=== PATIENT | female | born 1955 | race American Indian/Alaskan Native ===

== ENCOUNTER 2019-06-12 11:44 | Emergency (ER) | payer MEDICARE ==
[2019-06-12 12:18] VITALS: BP 130/70
--- NOTE | 2019-06-12 12:19 | Emergency Department Report ---
Blank Doc - Documentation Documentation: This is a 64-year-old female that presents with bilateral leg swelling and sev eral areas of redness after being bitten by unknown insect. This initial assessment/diagnostic orders/clinical plan/treatment(s) is/are subject to change based on patient's health status, clinical progression and re- assessment by fellow clinical providers in the ED. Further treatment and workup at subsequent clinical providers discretion. Patient/guardians urged not to elope from the ED as their condition may be serious if not clinically assessed and managed. Initial orders include: 1- Patient sent to MAIN ED for further evaluation and treatment 2- labs 3- EKG 4- UA
[2019-06-12 12:59] LABS: Basophils % (Auto) 0.2 % (0.0-1.8); Eosinophils # (Auto) 0.4 K/mm3 (0.0-0.4); Eosinophils % (Auto) 3.6 % (0.0-4.3); Hematocrit 40.1 % (30.3-42.9); Hemoglobin 13.3 gm/dl (10.1-14.3); Lymphocytes # (Auto) 2.1 K/mm3 (1.2-5.4); Lymphocytes % (Auto) 20.1 % (13.4-35.0); Mean Corpuscular HGB Conc 33 % (30-34); Mean Corpuscular Volume 89 fl (79-97); Monocytes # (Auto) 0.7 K/mm3 (0.0-0.8); Monocytes % (Auto) 6.3 % (0.0-7.3); Platelet Count 275 K/mm3 (140-440); Red Blood Count 4.52 M/mm3 (3.65-5.03); Red Cell Distribution Width 14.6 % (13.2-15.2)
[2019-06-12 13:16] LABS: Bacteria,Urine 1+ /HPF (Negative); Bilirubin,Urine NEG (Negative); Blood,Urine SM (Negative); Color,Urine Yellow (Yellow); Mucus,Urine FEW /HPF; Protein,Urine <15 mg/dL mg/dL (Negative); Urobilinogen,Urine < 2.0 mg/dL (<2.0)
[2019-06-12 13:35] LABS: BUN/Creatinine Ratio 13; Blood Urea Nitrogen 12 mg/dL (7-17); Calcium 9.2 mg/dL (8.4-10.2); Hemolysis Index 3
--- NOTE | 2019-06-12 17:41 | Emergency Department Report ---
ED Extremity Problem HPI - General Chief complaint: Extremity Injury, Upper Stated complaint: FEET SWELLING/ARM PAIN Time Seen by Provider: 06/12/19 12:17 Source: patient Mode of arrival: Ambulatory Limitations: No Limitations - History of Present Illness Initial comments: Patient is a 64-year-old female who presents to the emergency room with complaints of bilateral lower extremity edema that began 2 days ago. She states she has noticed some redness to her left foot. She states that she was also bitten by an insect on her left upper arm. has had some redness to the left upper arm with itching and hives present. she has not taken anything for her symptoms. She states she has had swelling in her legs before but denies any history of DVT/PE. she denies any chest pain, shortness of breath, or any other symptoms. She denies any new soaps, detergents, foods, lotions. Denies any past medical history. she does not take any medications on a daily basis. She denies any allergies to medications. - Related Data Previous Rx's Medication Instructions Recorded Last Taken Type Clindamycin [Clindamycin CAP] 450 mg PO TID 7 Days #63 capsule 06/12/19 Unknown Rx Hydrocortisone [Hydrocortisone 1 applic TP BID #1 oint...g. 06/12/19 Unknown Rx 2.5% OINT] diphenhydrAMINE [Benadryl CAP] 25 mg PO Q6HR PRN #20 capsule 06/12/19 Unknown Rx Allergies Allergy/AdvReac Type Severity Reaction Status Date / Time No Known Allergies Allergy Unverified 06/12/19 11:50 ED Review of Systems ROS: Stated complaint: FEET SWELLING/ARM PAIN Other details as noted in HPI Comment: All other systems reviewed and negative ED Past Medical Hx - Past Medical History Previous Medical History?: No - Surgical History Past Surgical History?: No - Social History Smoking Status: Never Smoker Substance Use Type: Alcohol - Medications Home Medications: Home Medications Medication Instructions Recorded Confirmed Last Taken Type Clindamycin [Clindamycin CAP] 450 mg PO TID 7 Days #63 capsule 06/12/19 Unknown Rx Hydrocortisone [Hydrocortisone 1 applic TP BID #1 oint...g. 06/12/19 Unknown Rx 2.5% OINT] diphenhydrAMINE [Benadryl CAP] 25 mg PO Q6HR PRN #20 capsule 06/12/19 Unknown Rx ED Physical Exam - General Limitations: No Limitations General appearance: alert, in no apparent distress - Head Head exam: Present: atraumatic, normocephalic - Eye Eye exam: Present: normal appearance - ENT ENT exam: Present: mucous membranes moist - Respiratory Respiratory exam: Present: normal lung sounds bilaterally. Absent: respiratory distress, wheezes, rales, rhonchi, stridor, chest wall tenderness, accessory muscle use, decreased breath sounds, prolonged expiratory - Cardiovascular Cardiovascular Exam: Present: regular rate, normal rhythm, normal heart sounds. Absent: systolic murmur, diastolic murmur, rubs, gallop - Extremities Exam Extremities exam: Present: other (bilateral LE edema, left greater than right, erythema present to the left foot, no drainage, no ulceration, no blistering, no insect bites, 2+ distal pulses, sensation intact) - Neurological Exam Neurological exam: Present: alert, oriented X3 - Psychiatric Psychiatric exam: Present: normal affect, normal mood - Skin Skin exam: Present: warm, dry, other (two small red papules consistent with insect bites to the left upper arm with some surrounding erythema, mild increased warmth, no drainage) ED Course Vital Signs 06/12/19 12:17 Temperature 97.9 F Pulse Rate 75 Respiratory 16 Rate Blood Pressure 130/70 O2 Sat by Pulse 100 Oximetry ED Medical Decision Making - Lab Data Result diagrams: 06/12/19 12:46 06/12/19 12:46 Lab Results 06/12/19 06/12/19 06/12/19 Range/Units 12:34 12:46 12:46 WBC 10.4 (4.5-11.0) K/mm3 RBC 4.52 (3.65-5.03) M/mm3 Hgb 13.3 (10.1-14.3) gm/dl Hct 40.1 (30.3-42.9) % MCV 89 (79-97) fl MCH 29 (28-32) pg MCHC 33 (30-34) % RDW 14.6 (13.2-15.2) % Plt Count 275 (140-440) K/mm3 Lymph % (Auto) 20.1 (13.4-35.0) % [place] % (Auto) 6.3 (0.0-7.3) % Eos % (Auto) 3.6 (0.0-4.3) % Baso % (Auto) 0.2 (0.0-1.8) % Lymph # 2.1 (1.2-5.4) K/mm3 [place] # 0.7 (0.0-0.8) K/mm3 Eos # 0.4 (0.0-0.4) K/mm3 Baso # 0.0 (0.0-0.1) K/mm3 Seg Neutrophils % 69.8 (40.0-70.0) % Seg Neutrophils # 7.2 (1.8-7.7) K/mm3 Sodium 142 (137-145) mmol/L Potassium 4.0 (3.6-5.0) mmol/L Chloride 104.5 (98-107) mmol/L Carbon Dioxide 24 (22-30) mmol/L Anion Gap 18 mmol/L BUN 12 (7-17) mg/dL Creatinine 0.9 (0.7-1.2) mg/dL Estimated GFR > 60 ml/min BUN/Creatinine Ratio 13 % Glucose 91 (65-100) mg/dL Calcium 9.2 (8.4-10.2) mg/dL NT-Pro-B Natriuret Pep 92.06 (0-900) pg/mL Urine Color Yellow (Yellow) Urine Turbidity Slightly-cloudy (Clear) Urine pH 5.0 (5.0-7.0) Ur Specific [place] 1.027 (1.003-1.030) Urine Protein <15 mg/dl (Negative) mg/dL Urine Glucose (UA) Neg (Negative) mg/dL Urine Ketones Neg (Negative) mg/dL Urine Blood Sm (Negative) Urine Nitrite Neg (Negative) Urine Bilirubin Neg (Negative) Urine Urobilinogen < 2.0 (<2.0) mg/dL Ur Leukocyte Esterase Sm (Negative) Urine WBC (Auto) 6.0 (0.0-6.0) /HPF Urine RBC (Auto) 10.0 (0.0-6.0) /HPF U Epithel Cells (Auto) 5.0 (0-13.0) /HPF Urine Bacteria (Auto) 1+ (Negative) /HPF Urine Mucus Few /HPF - EKG Data EKG shows normal: sinus rhythm, axis, intervals, QRS complexes, ST-T waves Rate: normal - Medical Decision Making Patient is a 64-year-old female who presents to the emergency room with complaints of bilateral lower extremity edema that began 2 days ago. She states she has noticed some redness to her left foot. She states that she was also bitten by an insect on her left upper arm. has had some redness to the left upper arm with itching and hives present. she has not taken anything for her symptoms. She states she has had swelling in her legs before but denies any history of DVT/PE. she denies any chest pain, shortness of breath, or any other symptoms. She denies any new soaps, detergents, foods, lotions. Denies any past medical history. she does not take any medications on a daily basis. She denies any allergies to medications. vitals are normal. labs are WNL. on exam: bilateral LE edema, left greater than right, erythema present to the left foot, no drainage, no ulceration, no blistering, no insect bites, 2+ distal pulses, sensation intact, two small red papules consistent with insect bites to the left upper arm with some surrounding erythema, mild increased warmth, no drainage. pt needs a BLE US to r/o DVT, pt given a order to return tomorrow (06/13/19) at 8 AM to the radiology department to have the ultrasound completed. pt given 10 mg of eliquis while in the ED. BLE edema could be due to DVT vs cellulitis. pt given prescription for clindamycin, benadryl, hydrocortisone ointment. advised pt to please take medication as prescribed. Please return tomorrow (06/13/19) to the radiology department at 8 AM in the morning to have an ultrasound completed to rule out a blood clot in the lower legs. If there is a blood clot present will need to be seen in the emergency department right after your ultrasound. If not then leg swelling most likely due to a skin infection called cellulitis and please take your antibiotics as prescribed. Follow-up with a primary care doctor in the next 2-3 days. Return to the emergency room for any new or worsening symptoms or if your symptoms are not improving. discussed in detail the importance of the patient returning tomorrow,discussed risks if she did not return. - Differential Diagnosis cellulitis, DVT, kidney dysfunction, CHF, allergic reaction, insect bite Critical care attestation.: If time is entered above; I have spent that time in minutes in the direct care of this critically ill patient, excluding procedure time. ED Disposition Clinical Impression: Leg swelling Insect bite Qualifiers: Encounter type: initial encounter Site of insect bite: upper arm Laterality: left Qualified Code(s): S40.862A - Insect bite (nonvenomous) of left upper arm, initial encounter Disposition: TO HOME OR SELFCARE Is pt being admited?: No Does the pt Need Aspirin: No Condition: Stable Instructions: Cellulitis (ED), Insect Bite or Sting (ED), Leg Edema (ED) Additional Instructions: Please take medication as prescribed. Please return tomorrow (06/13/19) to the radiology department at 8 AM in the morning to have an ultrasound completed to rule out a blood clot in the lower legs. If there is a blood clot present will need to be seen in the emergency department right after your ultrasound. If not then leg swelling most likely due to a skin infection called cellulitis and please take your antibiotics as prescribed. Follow-up with a primary care doctor in the next 2-3 days. Return to the emergency room for any new or worsening symptoms or if your symptoms are not improving. Prescriptions: diphenhydrAMINE [Benadryl CAP] 25 mg PO Q6HR PRN #20 capsule PRN Reason: Itching Clindamycin [Clindamycin CAP] 450 mg PO TID 7 Days #63 capsule Hydrocortisone [Hydrocortisone 2.5% OINT] 1 applic TP BID #1 oint...g. Referrals: PRIMARY CARE, [Primary Care Provider] - 2-3 Days Time of Disposition: 17:57 Print Language: [place]
[2019-06-12] MEDS ORDERED: ELIQUIS PO SCH ×2 (17:44→22:00)
== END 2019-06-12 18:25 | disposition home or self-care (01) ==
LOC: ED 11:44
DX: S40.862A Insect bite (nonvenomous) of left upper arm, initial encounter (principal); R22.43 Localized swelling, mass and lump, lower limb, bilateral; L53.9 Erythematous condition, unspecified; W57.XXXA Bitten or stung by nonvenomous insect and other nonvenomous arthropods, initial encounter; Y93.89 Activity, other specified; Y92.89 Other specified places as the place of occurrence of the external cause; Y99.8 Other external cause status
CPT/HCPCS: 36415; 80048; 81001; 83880; 85025; 93005; 93010